=== PATIENT | female | born 1975 | race Caucasian/White ===

== ENCOUNTER 2018-11-16 19:15 | Emergency (ER) | payer SELFPAY ==
[2018-11-16 19:16] VITALS: BP 123/86; PULSE 62; RESP 16; TEMP 36.6; O2SAT 99; BMI 35.4
[2018-11-16 20:02] VITALS: BP 126/79; PULSE 57; RESP 12; O2SAT 99
[2018-11-16] MEDS: Meclizine HCl 25 MG Tablet PO (20:17)
[2018-11-16] MEDS: Ondansetron 4 MG/2 ML Vial IV (20:17)
[2018-11-16 20:18] LABS: Absolute Lymphocyte Count 2.75 X10^3/uL (0.83-4.51); Absolute Neutrophil Count 8.3 X10^3/uL (2.0-7.7); Basophil# 0.03 X10^3/uL; Basophil% 0.2 % (0-1); Eosinophils% 1.7 % (0-5); Hemoglobin 11.5 g/dL (12.0-15.0); Lymphocyte # 2.75 X10^3/ul (4.0); Lymphocyte % 22.8 % (19-41); Mean Corp Hgb Conc 31.1 g/dL (32-36); Mean Corpuscular Hgb 24.8 pg (27.0-32.0); Mean Corpuscular Volume 79.9 fL (81-99); Mean Platelet Vol. 9.8 fl (6.2-12.0); Monocyte# 0.73 X10^3/uL; Monocyte% 6.1 % (0-10); NRBC Flagged by Analyzer 0 % (0-5); Neutrophil # 8.29 X10^3/uL (2.7-7.7); Neutrophil % 68.8 % (47-70); Platelet Count 331 K/mm3 (150-450); RBC Distribution Width CV 15.9 % (11.6-14.6); RBC Distribution Width SD 45.7 fl (35.1-43.9); Red Blood Count 4.63 M/mm3 (4.2-5.4); White Blood Count 12.1 K/mm3 (4.4-11.0)
[2018-11-16 20:25] LABS: Internal QC Validated? YES +Cl - CLEAR BKGD; Pregnancy, Serum, hCG Quali. NEGATIVE Negative
[2018-11-16 20:28] LABS: Anion Gap 5 (5-15); BUN 16 mg/dL (7-18); BUN/Creat Ratio 20.5 RATIO (10-20); Calcium,Total 8.4 mg/dL (8.5-10.1); Chloride 106 mmol/L (98-107); Creatinine, Serum 0.78 mg/dL (0.55-1.02); EST Glomerular Filtration Rate 86 mL/min (>60); Est Glom Filt Rate - Afr Amer 104 mL/min (>60); Estimated Creatinine Clearance 94.78 ml/min; Glucose 84 mg/dL (74-106); Potassium 3.6 mmol/L (3.5-5.1); Sodium Level 139 mmol/L (136-145)
--- NOTE | 2018-11-16 20:38 | ED.DCSUM_ITS ---
- ER Visit Summary Date of Service: 11/16/18 Chief Complaint: Vertigo History of Present Illness: The patient is a 43 F with no primary care physician. Patient reports that for the past 4 to 5 days her right ear has been plugged up. States that she has had these symptoms off and on. She does report she got muffled hearing and ringing in her right ear. States that approximately an hour and a half ago she had the abrupt onset of vertigo. She was nauseated with this and vomited 3 times. No blood in her emesis. She reports that her symptoms have essentially resolved now. She denies any is accompanied slurred speech or double vision. She denies any focal numbness or weakness. She reports that she has never had anything like this before. Physical Examination: Vitals: Stable. Afebrile. General: Well-nourished and well-developed. Head: Normocephalic atraumatic. HEENT: Serous effusions behind her TMs bilaterally. This is worse on the right than on the left. Neck: Supple, no lymphadenopathy. No JVD. Nontender. Cardiovascular: Regular rate and rhythm. No murmurs. Respiratory: No respiratory distress. Clear to auscultation bilaterally. Abdominal: Soft, nontender, nondistended, normal bowel sounds. No guarding, rebound, or peritoneal signs. Back: Nontender. Extremities: Nontender, no edema. Skin: Normal color, no rash. Neurologic: Alert and oriented ?3. Cranial nerves II through XII are intact. Normal strength and sensation. No nystagmus. NIH is 0. Psych: Normal affect. Test Results: CBC shows a white count of 12.1 with a hemoglobin of 11.5. Chem-7 shows a calcium of 8.4. test is negative. Emergency Department Course and Treatment: Patient feels much improved prior to arrival. She denies being dizzy at this time. She was given a dose of Zofran IV and Antivert p.o. She is resting comfortably and reports that she has no symptoms at this time. Treatment Plan: Patient's vertigo is most likely peripheral in etiology. She feels well and would like to go home. She will be discharged with Zofran and Antivert. Instructed to follow-up with Dr. Mariano of ENT in 3 to 5 days for another exam. I did discuss her the risk of a posterior circulation stroke and she understands that if anything is worsening she needs to return to emerge department for further evaluation and treatment. Disposition: To home in improved and stable condition. Impression: 1. Vertigo, peripheral. 2. Bilateral serous effusions. This note was generated with [employer] software. It may contain incorrect words, spelling, and punctuation that were not noted in review of the chart prior to signing ED Disposition - Plan for ED Patient: Instructions: VERTIGO, Unspecified Prescriptions: Meclizine HCl [Antivert] 25 mg PO 4X/DAY PRN PRN #20 tab PRN Reason: Dizziness Prescription Printed Ondansetron [Zofran Odt] 4 mg PO Q8H PRN PRN #10 tab PRN Reason: Nausea Prescription Printed Referrals: Jose M Mariano MD [STAFF PHYSICIAN] - 3-5 Days
[2018-11-16 20:42] VITALS: BP 110/81; PULSE 57; RESP 18; O2SAT 98
== END 2018-11-16 20:57 | disposition home or self-care (01) ==
LOC: ED 20:45
PROVIDERS: Emergency Provider Emergency Medicine
DX: H81.399 Other peripheral vertigo, unspecified ear (principal); H65.93 Unspecified nonsuppurative otitis media, bilateral
CPT/HCPCS: 80048; 84703; 85025; 96361; 96374; 99285; J7030; A4216; J2405